=== PATIENT | female | born 1950 | race Caucasian/White ===

== ENCOUNTER → 2017-02-18 | Outpatient (CLI) | payer BC | END | disposition home or self-care (01) | LOC: C.MAMM 07:29 | PROVIDERS: ATTEND Obstetrics & Gynecology | DX: M81.0 Age-related osteoporosis without current pathological fracture (principal) ==

== ENCOUNTER → 2017-02-19 | Outpatient (CLI) | payer BC ==
--- NOTE | 2017-02-19 15:17 | MAMMOGRAPHY REPORT ---
BILATERAL DIGITAL SCREENING MAMMOGRAM TOMOSYNTHESIS WITH CAD: 02/19/2017 CLINICAL HISTORY: Asymptomatic. Personal history of breast cancer. TECHNIQUE: Breast tomosynthesis in addition to standard 2D mammography was performed. Current study was also evaluated with a Computer Aided Detection (CAD) system. COMPARISON: Comparison is made to exams dated: 02/19/2016 mammogram, 02/14/2015 mammogram, 02/08/2014 ma mmogram, 01/25/2013 mammogram, 01/23/2012 mammogram, and 01/21/2011 mammogram - [facility]ter. BREAST COMPOSITION: The tissue of both breasts is heterogeneously dense, which may obscure small mas ses. FINDINGS: There is expected architectural distortion and surgical clips in the upper outer posterior left breast, denoting the site of prior lumpectomy. No new suspicious mass, architectural distortion or cluster of microcalcifications is seen bilaterally. IMPRESSION: ACR BI-RADS CATEGORY 1: NEGATIVE There is no mammographic evidence of malignancy. A 1 year screening mammogram is recommended. The pa tient will receive written notification of the results. Approximately 10% of breast cancers are not detected with mammography. A negative mammographic report should not delay biopsy if a clinically suggestive mass is present. Janna Galvin M.D. ay/:02/19/2017 12:19:56 Plant Machinist: Marc CHOUDHURY(Andrzej)(M), [facility] letter sent: Normal 1/2 BI-RADS Code: ACR BI-RADS Category 1: Negative
== END | disposition home or self-care (01) ==
LOC: C.MAMM 07:45
PROVIDERS: ATTEND Obstetrics & Gynecology
DX: Z12.31 Encounter for screening mammogram for malignant neoplasm of breast (principal)

== ENCOUNTER → 2017-05-07 | Outpatient (CLI) | payer BC ==
--- NOTE | 2017-05-07 14:47 | DIAGNOSTIC IMAGING REPORT ---
BONE SCAN WHOLE BODY CLINICAL HISTORY: Hip pain. Trochanteric bursitis.. Evaluate for metastatic disease. History of breast carcinoma. COMPARISON STUDY: No previous studies for comparison. FINDINGS: The patient was injected with 26 mCi of technetium 99m MDP. Three-hour delayed whole body images were acquired. There is a nonspecific focus of increased activity at the level of the fourth anterior rib. There is an equivocal focus of increased activity within the right lateral sixth rib. Skeletal uptake is otherwise unremarkable. There are no foci of increased activity within the symptomatic hips. IMPRESSION: 1. Nonspecific focus of increased activity at the level of the left anterior fourth rib. A second focus of very subtle increased activity is visualized the level of the right breast/right lateral sixth rib. 2. No evidence of pathologic activity within the symptomatic hips. 3. The rib lesion is estimated to have a less than 10% risk of representing a metastatic deposit. Electronically signed by: Santy Bourgeois M.D. 05/07/2017 2:46 PM Dictated Date/Time: 05/07/2017 2:41 PM
== END | disposition home or self-care (01) ==
LOC: C.NUCL 11:00
PROVIDERS: ATTEND Orthopaedic Surgery Orthopaedic Surgery of the Spine
DX: M70.61 Trochanteric bursitis, right hip (principal); M70.62 Trochanteric bursitis, left hip; M85.88 Other specified disorders of bone density and structure, other site

== ENCOUNTER → 2017-05-14 | Outpatient (CLI) | payer BC ==
[2017-05-14 17:24] LABS: BASO % 0.2 %; BASO ABS # 0.01 K/uL (0-0.2); COMPLETE YES; EOS % 1.5 %; HEMATOCRIT 39.3 % (37-47); LYMPH % 19.5 %; LYMPH ABS # 1.03 K/uL (1.2-3.4); MEAN CELL VOLUME 87.7 fL (80-100); MEAN CORPUSCULAR HEMOGLOBIN 28.8 pg (25-34); MEAN CORPUSCULAR HGB CONC 32.8 g/dl (32-36); MEAN PLATELET VOLUME 10.6 fL (7.4-10.4); MONO % 8.7 %; NEUT % 70.1 %; PLATELET COUNT 180 K/uL (130-400); RED BLOOD COUNT 4.48 M/uL (4.2-5.4); WHITE BLOOD COUNT 5.27 K/uL (4.8-10.8)
[2017-05-17 10:59] LABS: 18KDIGG BAND NONREACTIVE (NONREACTIVE); 23KDIGG BAND NONREACTIVE (NONREACTIVE); 23KDIGM BAND NONREACTIVE (NONREACTIVE); 28KDIGG BAND NONREACTIVE (NONREACTIVE); 30KDIGG BAND NONREACTIVE (NONREACTIVE); 39KDIGG BAND NONREACTIVE (NONREACTIVE); 39KDIGM BAND NONREACTIVE (NONREACTIVE); 41KDIGG BAND REACTIVE (NONREACTIVE); 41KDIGM BAND NONREACTIVE (NONREACTIVE); 45KDIGG BAND NONREACTIVE (NONREACTIVE); 58KDIGG BAND REACTIVE (NONREACTIVE); 66KDIGG BAND NONREACTIVE (NONREACTIVE); 93KDIGG BAND NONREACTIVE (NONREACTIVE)
== END | disposition home or self-care (01) ==
LOC: C.LABBC 12:59
PROVIDERS: ATTEND Orthopaedic Surgery Orthopaedic Surgery of the Spine
DX: M25.559 Pain in unspecified hip (principal)

== ENCOUNTER 2021-08-31 14:19 | Observation (INO) ==
--- NOTE | 2021-08-31 14:44 | XRay Report ---
XR chest 1V portable CLINICAL HISTORY: Chest Pain. COMPARISON STUDY: No previous studies for comparison. TECHNIQUE: 1 view of the chest FINDINGS: Single frontal view of the chest demonstrates the cardiomediastinal silhouette to be within normal li mits. There is hyperinflation of the lungs with attenuation of the pulmonary vasculature peripherally characteristic of underlying chronic obstructive pulmonary disease. The lungs are clear of alveolar opacities. There is no evidence for pleural effusion. There is no evidence for vascular congestion. T here is no acute osseous pathology. IMPRESSION: 1. No acute cardiopulmonary disease. Evidence for underlying COPD. ACT 112: Negative or not required by law. Electronically signed by: Nick Batista M.D. 08/31/2021 2:43 PM
[2021-08-31] MEDS ORDERED: ONDANSETRON INJ 2 MG/ML 2 ML VIAL IV STA ×2 (15:00→17:26)
[2021-08-31] MEDS ORDERED: MoRPHine SULFATE 4 MG/ML 1 ML CARP\\VIAL IV STA (15:00)
--- NOTE | 2021-08-31 15:04 | Electrocardiogram Report ---
Test Reason : Blood Pressure : / mmHG Vent. Rate : 086 BPM Atrial Rate : 086 BPM P-R Int : 164 ms QRS Dur : 074 ms QT Int : 366 ms P-R-T Axes : 082 072 070 degrees QTc Int : 437 ms Sinus rhythm with frequent Premature atrial complexes Left atrial enlargement Borderline ECG No previous ECGs available Confirmed by Marcus Terry ([id number]) on 08/31/2021 3:03:51 PM Referred By: Confirmed By:Marcus Terry
[2021-08-31 15:07] LABS: Basophils # (auto) 0.01 K/uL (0-0.2); Basophils % (auto) 0.3 %; Eosinophils # (auto) 0.04 K/uL (0-0.5); Eosinophils % (auto) 1.1 %; Hematocrit (blood only) 39.8 % (37-47); Hemoglobin 13.6 g/dL (12.0-16.0); Lymphocytes # (auto) 1.13 K/uL (1.2-3.4); Lymphocytes % (auto) 29.8 %; Mean Corpuscular Hemoglobin 29.8 pg (25-34); Mean Corpuscular Hgb Conc 34.2 g/dL (32-36); Mean Corpuscular Volume 87.1 fL (80-100); Mean Platelet Volume 10.3 fL (7.4-10.4); Monocytes # (auto) 0.43 K/uL (0.11-0.59); Monocytes % (auto) 11.3 %; Neutrophils # (auto) 2.18 K/uL (1.4-6.5); Neutrophils % (auto) 57.5 %; Platelet Count 140 K/uL (130-400); RDW Coefficient of Variation 13.4 % (11.5-14.5); RDW Standard Deviation 42.8 fL (36.4-46.3); Red Blood Count 4.57 M/uL (4.2-5.4); White Blood Count 3.79 K/uL (4.8-10.8)
[2021-08-31] MEDS ORDERED: KETOROLAC TROMETHAMINE 15 MG/ML VIAL IV ONE (15:18)
[2021-08-31 15:19] LABS: D Dimer 450 ug/L FEU (0-500)
[2021-08-31 15:30] LABS: Troponin I < 0.03 ng/ml (0-0.04)
[2021-08-31 15:32] LABS: Alanine Aminotransferase 12 U/L (7-52); Albumin Globulin Ratio 1.6 (0.9-2); Albumin Level 4.2 gm/dl (3.4-5.0); Alkaline Phosphatase 50 U/L (34-104); Anion Gap 7 (3-11); Aspartate Aminotransferase 16 U/L (13-39); BUN Creatinine Ratio 30.1 (10-20); Bilirubin,Total 0.4 mg/dl (0.2-1.0); Blood Urea Nitrogen 22 mg/dl (6-23); Calcium 9.4 mg/dl (8.5-10.1); Carbon Dioxide 28 mmol/L (21-32); Chloride 103 mmol/L (98-107); Creatinine Clr Calc Pharmacy 63.6 ml/min; Est GFR (Non-African American) 82.9 ml/min; Globulin 2.6 gm/dl (2.5-4.0); Glucose 79 mg/dl (70-99(Fasting)); Lipase 24 U/L (11-82); Potassium 4.2 mmol/L (3.5-5.1); Sodium 138 mmol/L (136-145); Total Protein 6.8 gm/dl (6.0-8.3)
--- NOTE | 2021-08-31 16:48 | Emergency Department Note ---
Impression & Plan Left-sided chest pain ED Provider Note INFORMANT: Patient ED PROVIDER(S): William Melvin MD CHIEF COMPLAINT: Chest pain PLAN: Disposition: Admitted Condition: Good Outpatient prescription management: none Referral: None MEDICAL DECISION MAKING: Patient presented with pleuritic-like left-sided chest pain. She taken aspirin at home. Her ECG and chest x-ray did not reveal any acute findings. Patient was offered morphine and Zofran but then declined. She was given a dose of Toradol as she requested Motrin she later alluded to the fact that she has an allergy to aspirin but does take Motrin at home without difficulties. She felt like she had some congestion but no swelling or difficulty breathing. The patient had an unremarkable troponin and D-dimer. CBC and chemistry panel was unremarkable as well. On reassessment the patient was still uncomfortable. Exact etiology of her pain is not obvious. She then did agree to a dose of morphine and morphine and Zofran were ordered. Nitropaste was also applied as the patient was mildly hypertensive. Given the patient's age and location of pain further management in the hospital was felt to be appropriate. [facility] Patient was evaluated for further management. Triage Nursing notes reviewed and agree them. Vital Signs: reviewed and remarkable for no significant abnormalities Differential diagnosis: Cardiac ischemia, aortic dissection, pulmonary embolism, pneumothorax, pneumonia, pericarditis, myocarditis, esophageal rupture, GERD, cholecystitis, pancreatitis, musculoskeletal, as well as other pathologies. Diagnostics interpreted by me: ECG: Twelve-lead ECG reveals sinus rhythm with PACs and left atrial enlargement at [address] elevation or depression. No prior for comparison. Cardiac Monitoring:Cardiac monitoring ordered by me: The patient was placed on continuous cardiac monitoring and observed. It revealed a normal sinus rhythm at 65 beats per minute without ectopy or evidence of dysrhythmia. Imaging studies: Chest x-ray. Findings: A chest x-ray was performed and revealed no pneumothorax, effusion, infiltrate, pulmonary edema, free air under the diaphragm, or wide mediastinum. HPI: The patient is a 71 year old female who presents to the Emergency Room with complaints of left-sided. This started less than an hour ago and is sharp. Occurred while she was scrubbing her bathroom. Patient noted some hot flashes. The patient also notes the following associated symptoms, difficulty taking a deep breath. Pain is increased with taking a deep breath The patient has tried aspirin relieving factors. Current pain is rated as 8/10. No prior history of the same. Pt denies LOC, headache, fevers, chills, diaphoresis, visual changes, neck pain, travel, history of blood clots,nausea, vomiting, abdominal pain, back pain, melena, hematochezia, urinary symptoms, numbness, weakness, lymphadenopathy, rash, or other complaints. ROS: See above HPI for pertinent positives & negatives. A total of 10 systems reviewed and were otherwise negative. PAST MEDICAL HISTORY:See Below , arthritis PAST SURGICAL HISTORY:See Below, FAMILY HISTORY:See Below SOCIAL HISTORY:See Below, non-smoker HOME MEDICATIONS:See Below ALLERGIES:See Below VITALS:See Below PHYSICAL EXAMINATION: GENERAL: Awake, alert, well-appearing, in no distress HENT: Normocephalic, atraumatic. Oropharynx unremarkable. EYES: Normal conjunctiva. Sclera non-icteric. NECK: Inspection normal. Non-tender. Supple. No nuchal rigidity. FROM. No masses. RESPIRATORY: Clear to auscultation. No wheezes. No rales. Normal respiratory effort. CARDIAC: Normal rate. Normal rhythm. No murmurs. No rubs. Extremities warm and well perfused. Pulses equal. No JVD. GI: Soft, non-distended. No tenderness to palpation. No rebound or guarding. No masses. RECTAL: Deferred. MUSCULOSKELETAL: Atraumatic. Chest examination reveals minimal left side tenderness. The back is symmetrical on inspection without obvious abnormality. There is no CVA tenderness to palpation. No joint edema. LOWER EXTREMITIES: Calves are equal size bilaterally and non-tender. No edema. No discoloration. NEURO: Normal sensorium. No sensory or motor deficits noted. SKIN: No rash or jaundice noted. William Melvin MD Past Med/Surg History Medical History (Updated 08/31/21 @ 18:55 by Leeann Johnson PA-C) GERD (gastroesophageal reflux disease) History of left breast cancer s/p lumpectomy HLA B27 (HLA B27 positive) Osteoarthritis of knees, bilateral Polymyalgia rheumatica Surgical History (Updated 08/31/21 @ 18:50 by Leeann Johnson PA-C) History of cataract surgery History of lumpectomy of left breast Family History (Updated 08/31/21 @ 18:52 by Leeann Johnson PA-C) Brother Cancer Hodgkins Sudden age 50 Social History (Updated 08/31/21 @ 18:52 by Leeann Johnson PA-C) Smoking Status: Never smoker Hx Alcohol Use: Yes (1 drink once a week) Hx Substance Use: No Preferred Language: Jordanian Feels Safe at Home: Yes Allergies Allergies Allergy/AdvReac Type Severity Reaction Status Date / Time aspirin Allergy Anaphylaxis Unverified 08/31/21 17:39 Sulfa (Sulfonamide AdvReac Verified 08/31/21 17:40 Antibiotics) Home Meds Home Medications Medication Instructions Recorded Confirmed calcium carbonate 600 mg calcium 600 mg PO DAILY 07/05/21 08/31/21 (1,500 mg) tablet (Calcium) denosumab 60 mg/mL subcutaneous 60 mg SUBCUT .2x/year ml 07/05/21 08/31/21 syringe (Prolia) famotidine 20 mg tablet 20 mg PO BID 07/05/21 08/31/21 leflunomide 10 mg tablet 10 mg PO DAILY 08/31/21 08/31/21 multivitamin 1 tab PO DAILY 08/31/21 08/31/21 Results & Data (ED) Vital Signs Vital Signs - 24 hr 08/31/21 14:22 08/31/21 14:50 08/31/21 16:19 Temperature 36.4 C L Temperature Source Temporal Artery Scan Pulse Rate 59 L Pulse Rate [Apical] 65 Respiratory Rate 18 18 Blood Pressure 157/74 H Blood Pressure [Left Arm] 143/64 H Blood Pressure Mean 101 Blood Pressure Mean [Left Arm] 90 Pulse Oximetry 99 99 98 Oxygen Delivery Method Room Air Room Air Sepsis Recent Fever Within 48 Hours No Sepsis New/Unexplained Change in Mental Status No Sepsis Action Taken by Nursing No Action Required 08/31/21 18:00 Temperature Temperature Source Pulse Rate Pulse Rate [Apical] 60 Respiratory Rate 18 Blood Pressure Blood Pressure [Left Arm] 140/54 L Blood Pressure Mean Blood Pressure Mean [Left Arm] 82 Pulse Oximetry 98 Oxygen Delivery Method Room Air Sepsis Recent Fever Within 48 Hours Sepsis New/Unexplained Change in Mental Status Sepsis Action Taken by Nursing Laboratory Data Result diagrams: 08/31/21 15:00 08/31/21 15:00 Lab Results 08/31/21 08/31/21 08/31/21 Range/Units 15:00 15:00 15:00 WBC 3.79 L (4.8-10.8) K/uL RBC 4.57 (4.2-5.4) M/uL Hgb 13.6 (12.0-16.0) g/dL Hct 39.8 (37-47) % MCV 87.1 (80-100) fL MCH 29.8 (25-34) pg MCHC 34.2 (32-36) g/dL RDW Std Deviation 42.8 (36.4-46.3) fL RDW Coeff of Christ 13.4 (11.5-14.5) % Plt Count 140 (130-400) K/uL MPV 10.3 (7.4-10.4) fL Immature Gran % (Auto) 0.0 % Neut % (Auto) 57.5 % Lymph % (Auto) 29.8 % Desha % (Auto) 11.3 % Eos % (Auto) 1.1 % Baso % (Auto) 0.3 % Neut # (Auto) 2.18 (1.4-6.5) K/uL Lymph # (Auto) 1.13 L (1.2-3.4) K/uL Desha # (Auto) 0.43 (0.11-0.59) K/uL Eos # (Auto) 0.04 (0-0.5) K/uL Baso # (Auto) 0.01 (0-0.2) K/uL Immature Gran # (Auto) 0.00 (0.00-0.02) K/uL D-Dimer 450 (0-500) ug/L FEU Sodium 138 (136-145) mmol/L Potassium 4.2 (3.5-5.1) mmol/L Chloride 103 (98-107) mmol/L Carbon Dioxide 28 (21-32) mmol/L Anion Gap 7 (3-11) BUN 22 (6-23) mg/dl Creatinine 0.73 (0.6-1.2) mg/dl Est Cr Clr Drug Dosing 63.6 ml/min Est GFR ( Amer) 96.0 ml/min Est GFR (Non-Af Amer) 82.9 ml/min BUN/Creatinine Ratio 30.1 H (10-20) Glucose 79 (70-99(Fasting)) mg/dl Calcium 9.4 (8.5-10.1) mg/dl Total Bilirubin 0.4 (0.2-1.0) mg/dl AST 16 (13-39) U/L ALT 12 (7-52) U/L Alkaline Phosphatase 50 (34-104) U/L Troponin I < 0.03 (0-0.04) ng/ml Total Protein 6.8 (6.0-8.3) gm/dl Albumin 4.2 (3.4-5.0) gm/dl Globulin 2.6 (2.5-4.0) gm/dl Albumin/Globulin Ratio 1.6 (0.9-2) Lipase 24 (11-82) U/L SARS-CoV-2, RNA, NAAT (NEGATIVE) 08/31/21 Range/Units 17:40 WBC (4.8-10.8) K/uL RBC (4.2-5.4) M/uL Hgb (12.0-16.0) g/dL Hct (37-47) % MCV (80-100) fL MCH (25-34) pg MCHC (32-36) g/dL RDW Std Deviation (36.4-46.3) fL RDW Coeff of Christ (11.5-14.5) % Plt Count (130-400) K/uL MPV (7.4-10.4) fL Immature Gran % (Auto) % Neut % (Auto) % Lymph % (Auto) % Desha % (Auto) % Eos % (Auto) % Baso % (Auto) % Neut # (Auto) (1.4-6.5) K/uL Lymph # (Auto) (1.2-3.4) K/uL Desha # (Auto) (0.11-0.59) K/uL Eos # (Auto) (0-0.5) K/uL Baso # (Auto) (0-0.2) K/uL Immature Gran # (Auto) (0.00-0.02) K/uL D-Dimer (0-500) ug/L FEU Sodium (136-145) mmol/L Potassium (3.5-5.1) mmol/L Chloride (98-107) mmol/L Carbon Dioxide (21-32) mmol/L Anion Gap (3-11) BUN (6-23) mg/dl Creatinine (0.6-1.2) mg/dl Est Cr Clr Drug Dosing ml/min Est GFR ( Amer) ml/min Est GFR (Non-Af Amer) ml/min BUN/Creatinine Ratio (10-20) Glucose (70-99(Fasting)) mg/dl Calcium (8.5-10.1) mg/dl Total Bilirubin (0.2-1.0) mg/dl AST (13-39) U/L ALT (7-52) U/L Alkaline Phosphatase (34-104) U/L Troponin I (0-0.04) ng/ml Total Protein (6.0-8.3) gm/dl Albumin (3.4-5.0) gm/dl Globulin (2.5-4.0) gm/dl Albumin/Globulin Ratio (0.9-2) Lipase (11-82) U/L SARS-CoV-2, RNA, NAAT NEGATIVE (NEGATIVE) Administered Medications Discontinued Medications Ketorolac Tromethamine (Ketorolac Tromethamine 15 Mg/Ml Vial) 10 mg IV NOW ONE Stop: 08/31/21 15:19 Last Admin: 08/31/21 15:26 Dose: 10 mg Documented by: [id number] Morphine Sulfate (Morphine Sulfate 4 Mg/Ml 1 Ml Carp\Vial) 4 mg IV NOW STA Stop: 08/31/21 15:01 Last Admin: 08/31/21 15:23 Dose: Not Given Documented by: [id number] Morphine Sulfate (Morphine Sulfate 2 Mg/Ml Carp) 2 mg IV NOW STA Stop: 08/31/21 17:27 Last Admin: 08/31/21 17:45 Dose: 2 mg Documented by: [id number] Nitroglycerin (Nitroglycerin 2% Ointment 30gm Tube) 0.5 inch EXT NOW STA Stop: 08/31/21 17:27 Last Admin: 08/31/21 17:45 Dose: 0.5 inch Documented by: [id number] Ondansetron HCl (Ondansetron Inj 2 Mg/Ml 2 Ml Vial) 4 mg IV NOW STA Stop: 08/31/21 15:01 Last Admin: 08/31/21 15:23 Dose: Not Given Documented by: [id number] Ondansetron HCl (Ondansetron Inj 2 Mg/Ml 2 Ml Vial) 4 mg IV NOW STA Stop: 08/31/21 17:27 Last Admin: 08/31/21 17:45 Dose: 4 mg Documented by: [id number] Imaging Data Radiologist's Impression: Chest X-Ray 08/31/21 14:30 XR chest 1V portable CLINICAL HISTORY: Chest Pain. COMPARISON STUDY: No previous studies for comparison. TECHNIQUE: 1 view of the chest FINDINGS: Single frontal view of the chest demonstrates the cardiomediastinal silhouette to be within normal limits. There is hyperinflation of the lungs with attenuatio n of the pulmonary vasculature peripherally characteristic of underlying chronic obstructive pulmonary disease. The lungs are clear of alveolar opacities. There is no evidence for pleural effusion. There is no evidence for vascular congestion. There is no acute osseous pathology. IMPRESSION: 1. No acute cardiopulmonary disease. Evidence for underlying COPD. ACT 112: Negative or not required by law. Electronically signed by: Nick Batista M.D. 08/31/2021 2:43 PM Discharge Plan Visit Data Chief Complaint: Chest Pain Stated Complaint: CHEST PAIN, UNABLE TO BREATHE DEEPLY ED Provider: William Melvin Discharge Problem: Left-sided chest pain Forms Stand Alone Forms: My [facility] Prescriptions Prescriptions: No Action calcium carbonate [Calcium 600] 600 mg calcium (1,500 mg) tablet 600 mg PO DAILY RF: 0 famotidine 20 mg tablet 20 mg PO BID RF: 0 Prolia 60 mg/mL syringe 60 mg subcut .2x/year RF: 0 multivitamin Tablet 1 tab PO DAILY RF: 0 leflunomide 10 mg Tablet 10 mg PO DAILY RF: 0 Referrals Referrals: William Kebede MD [Primary Care Provider] -
[2021-08-31] MEDS ORDERED: MoRPHine SULFATE 2 MG/ML CARP IV STA (17:26)
[2021-08-31] MEDS ORDERED: NITROGLYCERIN 2% OINTMENT 30GM TUBE EXT STA (17:26)
--- NOTE | 2021-08-31 17:56 | History & Physical Report ---
Date of Service August 31, 2021 Assessment & Plan (1) Chest pain: Plan: Patient is 71 y/o F with PMH PMR, HLA-B27 arthritis, GERD, H/O left breast CA status post lumpectomy in 2000 presented to ER with complaint of chest pain that started approximately 1 hour prior to arrival. Patient reports was cleaning her sink when started with pain to her left chest described as sharp, aggravated with movement of her left arm and with inspiration and expiration. Denies any di zziness, lightheadedness, palpitations, neck pain, jaw pain, nausea, vomiting, diaphoresis. In ER patient afebrile, vitals stable. EKG sinus rhythm, PAC. initial troponin negative. D-dimer: WNL. CXR: No acute cardiopulmonary disease Patient is really denied any medications for pain. Patient then agreed to medication was given Toradol 10 mg without much relief. She was then given morphine 2 mg and Nitropaste was applied without significant improvement CHEST PAIN R/O ACS. Risk factors: FH. Suspect musculoskeletal etiology with reproducible pain on exam Repeat EKG in am Will trend troponin Echo lipid panel in am reports unable to tolerate aspirin - causes itchy throat Apply lidocaine patch, heat Nitro prn CP and repeat EKG for CP (2) HLA B27 (HLA B27 positive): (3) Polymyalgia rheumatica: Plan: Follows with rheumatology -Dr Mi Continue leflunomide (4) GERD (gastroesophageal reflux disease): Plan: Continue Pepcid (5) History of left breast cancer: Plan: S/P Left breast lumpectomy in 2000 DVT Prophylaxis Heparin SQ Full Code as per discussion with pt Follows with Dr Kebede for routine care Pt was seen and care coordinated with Dr Hanson. See addendum History of Present Illness Chief Complaint: CP Primary Care Provider: William Kebede MD Patient is 71 y/o F with PMH PMR, HLA-B27 arthritis, GERD, H/O left breast CA status post lumpectomy in 2000 presented to ER with complaint of chest pain that started approximately 1 hour prior to arrival. Patient reports was cleaning her sink when started with pain to her left chest described as sharp, aggravated with movement of her left arm and with inspiration and expiration. Patient reports with movement or with breathing pain is an 8 out of 10, at rest is approximately 4 out of 10 on pain scale. Denies any dizziness, lightheadedness, palpitations, neck pain, jaw pain, nausea, vomiting, diaphoresis. Patient reports chronic upper extremity pain secondary to arthritis and feels this is at baseline. Denies any injury or trauma. Patient reports this morning helped her to put in a light and had her arms extended overhead for approximately 1 minute. Patient states the light was not heavy did not feel like she injured herself at the time. Denies fever/chills, N/V/D/C, DEL REAL, syncope, vision changes, neck pain, SOB, orthopnea, cough, sore throat, choking, otalgia, rhinorrhea, abdominal pain, paresthesias, extremity weakness, extremity edema, rashes, urinary symptoms. Allergies Allergy/AdvReac Type Severity Reaction Status Date / Time aspirin Allergy Anaphylaxis Unverified 08/31/21 17:39 Sulfa (Sulfonamide AdvReac Verified 08/31/21 17:40 Antibiotics) Home Medications Medication Instructions Recorded Confirmed Type calcium carbonate 600 mg calcium 600 mg PO DAILY 07/05/21 08/31/21 History (1,500 mg) tablet (Calcium) denosumab 60 mg/mL subcutaneous 60 mg SUBCUT .2x/year ml 07/05/21 08/31/21 History syringe (Prolia) famotidine 20 mg tablet 20 mg PO BID 07/05/21 08/31/21 History leflunomide 10 mg tablet 10 mg PO DAILY 08/31/21 08/31/21 History multivitamin 1 tab PO DAILY 08/31/21 08/31/21 History Past Med/Surg History Medical History (Updated 08/31/21 @ 18:55 by Leeann Johnson PA-C) GERD (gastroesophageal reflux disease) History of left breast cancer s/p lumpectomy HLA B27 (HLA B27 positive) Osteoarthritis of knees, bilateral Polymyalgia rheumatica Surgical History (Updated 08/31/21 @ 18:50 by Leeann Johnson PA-C) History of cataract surgery History of lumpectomy of left breast Family History (Updated 08/31/21 @ 18:52 by Leeann Johnson PA-C) Brother Cancer Hodgkins Sudden age 50 Social History (Updated 08/31/21 @ 19:12 by Leeann Johnson PA-C) Smoking Status: Never smoker Hx Alcohol Use: Yes Alcohol Intake Frequency: Monthly or Less Hx Substance Use: No Preferred Language: Montenegrin Feels Safe at Home: Yes Review of Systems Review of Systems: All systems reviewed & are unremarkable except as noted in HPI & below Physical Exam Physical Exam: General: no distress, WDWN Head: normocephalic, atraumatic Eyes: PERRL, EOM's intact, conjunctiva non-injected, anicteric ENT: normal inspection external ears, nose, mucous membranes moist Neck: supple, trachea midline Lungs: clear, no respiratory distress, no wheezing/rhonchi/rales CV: RRR, no murmur, no pretibial edema; chest wall without rashes +tenderness to palpation left mid anterior chest wall Abd: normal BS, soft, non-tender Ext: no cyanosis, no calf tenderness Neuro: A&O x 3, no focal deficits noted, normal affect Skin: warm, dry Results & Data Results & Data ([facility]) Vital Signs (Past 12 Hours) Vital Signs Temp Pulse Pulse Resp BP BP Pulse Ox 08/31/21 16:19 65 18 143/64 H 98 08/31/21 14:50 99 08/31/21 14:22 36.4 C L 59 L 18 157/74 H 99 Laboratory Results Short CBC 08/31/21 Range/Units 15:00 WBC 3.79 L (4.8-10.8) K/uL Hgb 13.6 (12.0-16.0) g/dL Hct 39.8 (37-47) % Plt Count 140 (130-400) K/uL BMP 08/31/21 15:00 Sodium 138 Potassium 4.2 Chloride 103 Carbon Dioxide 28 BUN 22 Creatinine 0.73 Glucose 79 Calcium 9.4 Cardiac Enzymes 08/31/21 Range/Units 15:00 Troponin I < 0.03 (0-0.04) ng/ml Liver Function 08/31/21 Range/Units 15:00 Total Bilirubin 0.4 (0.2-1.0) mg/dl AST 16 (13-39) U/L ALT 12 (7-52) U/L Alkaline Phosphatase 50 (34-104) U/L Albumin 4.2 (3.4-5.0) gm/dl Diagnostic Findings Chest X-Ray 04/01/22 14:30 XR chest 1V portable CLINICAL HISTORY: Chest Pain. COMPARISON STUDY: No previous studies for comparison. TECHNIQUE: 1 view of the chest FINDINGS: Single frontal view of the chest demonstrates the cardiomediastinal silhouette to be within normal limits. There is hyperinflation of the lungs with attenuation of the pulmonary vasculature peripherally characteristic of underlying chronic obstructive pulmonary disease. The lungs are clear of alveolar opacities. There is no evidence for pleural effusion. There is no evidence for vascular congestion. There is no acute osseous pathology. IMPRESSION: 1. No acute cardiopulmonary disease. Evidence for underlying COPD. ACT 112: Negative or not required by law. Electronically signed by: Nick Batista M.D. 08/31/2021 2:43 PM ECG Rate (beats per minute): 86 Rhythm: sinus rhythm Findings: + PAC
[2021-08-31] MEDS ORDERED: ONDANSETRON INJ 2 MG/ML 2 ML VIAL IV PRN (20:09)
[2021-08-31] MEDS ORDERED: POLYETHYLENE (MIRALAX) 17 GM PACK PO PRN (20:09)
[2021-08-31] MEDS ORDERED: ACETAMINOPHEN 325 MG TAB PO PRN (20:09)
[2021-08-31] MEDS ORDERED: NITROGLYCERIN SL 0.4 MG/TAB TAB SL PRN (20:09)
[2021-08-31] MEDS ORDERED: LIDOCAINE 5% 1 PATCH TD SCH (20:30)
[2021-08-31] MEDS: FAMOTIDINE 20 MG TAB PO SCH (21:41)
[2021-08-31] MEDS: HEPARIN SOD 5,000 UNIT/0.5 ML VIAL SQ SCH (22:08)
[2021-09-01 06:48] LABS: Hematocrit (blood only) 39.6 % (37-47); Hemoglobin 13.1 g/dL (12.0-16.0); Mean Corpuscular Hgb Conc 33.1 g/dL (32-36); Mean Corpuscular Volume 87.8 fL (80-100); Mean Platelet Volume 10.1 fL (7.4-10.4); Platelet Count 137 K/uL (130-400); RDW Coefficient of Variation 13.4 % (11.5-14.5); RDW Standard Deviation 43.2 fL (36.4-46.3); Red Blood Count 4.51 M/uL (4.2-5.4); White Blood Count 3.26 K/uL (4.8-10.8)
[2021-09-01 07:10] LABS: Troponin I < 0.03 ng/ml (0-0.04)
[2021-09-01 07:11] LABS: Anion Gap 5 (3-11); BUN Creatinine Ratio 26.9 (10-20); Blood Urea Nitrogen 21 mg/dl (6-23); Calcium 8.9 mg/dl (8.5-10.1); Carbon Dioxide 30 mmol/L (21-32); Chloride 106 mmol/L (98-107); Chol HDL Ratio 2.3 (0-5); Cholesterol 179 mg/dl (0-200); Creatinine Clr Calc Pharmacy 59.5 ml/min; Est GFR (African American) 88.6 ml/min; Est GFR (Non-African American) 76.5 ml/min; Glucose 81 mg/dl (70-99(Fasting)); HDL Cholesterol 78 mg/dl; LDL Cholesterol Calculated 92 mg/dl; Potassium 4.6 mmol/L (3.5-5.1); Sodium 141 mmol/L (136-145); Triglycerides 47 mg/dl (0-150); VLDL Cholesterol 9 mg/dl (0-30)
[2021-09-01] MEDS ORDERED: LEFLUNOMIDE 10 MG TAB PO SCH (09:00)
--- NOTE | 2021-09-01 10:23 | Electrocardiogram Report ---
Test Reason : Blood Pressure : / mmHG Vent. Rate : 070 BPM Atrial Rate : 060 BPM P-R Int : 138 ms QRS Dur : 088 ms QT Int : 428 ms P-R-T Axes : 079 046 058 degrees QTc Int : 462 ms Sinus rhythm with frequent Premature atrial complexes Otherwise normal ECG When compared with ECG of 31-AUG-2021 14:30, No significant change was found Confirmed by Bob Fish ([id number]) on 09/01/2021 10:23:09 AM Referred By: REFERRED SELF Confirmed By:Bob Fish
[2021-09-01] MEDS: HEPARIN SOD 5,000 UNIT/0.5 ML VIAL SQ SCH (10:26)
[2021-09-01] MEDS: FAMOTIDINE 20 MG TAB PO SCH (10:33)
--- NOTE | 2021-09-01 12:51 | Hospitalist Progress Note ---
Date of Service September 01, 2021 Assessment & Plan (1) Chest pain: Plan: Patient is 71 y/o F with PMH PMR, HLA-B27 arthritis, GERD, H/O left breast CA status post lumpectomy in 2000 presented to ER with complaint of chest pain that started approximately 1 hour prior to arrival. Patient reports was cleaning her sink when started with pain to her left chest described as sharp, aggravated with movement of her left arm and with inspiration and expiration. Denies any di zziness, lightheadedness, palpitations, neck pain, jaw pain, nausea, vomiting, diaphoresis. In ER patient afebrile, vitals stable. EKG sinus rhythm, PAC. initial troponin negative. D-dimer: WNL. CXR: No acute cardiopulmonary disease Patient is really denied any medications for pain. Patient then agreed to medication was given Toradol 10 mg without much relief. She was then given morphine 2 mg and Nitropaste was applied without significant improvement CHEST PAIN R/O ACS. Risk factors: FH. Suspect musculoskeletal etiology with reproducible pain on exam Repeat EKG in am-did not show any significant change Will trend troponin-troponin x3 have been negative Echo showed-LV is normal in size with EF 55 to 60%, LV wall motion is normal, RV systolic function is normal, moderate mitral regurgitation and there is mild TR lipid panel in am-unremarkable reports unable to tolerate aspirin - causes itchy throat Apply lidocaine patch, heat Nitro prn CP and repeat EKG for CP Remains almost free of any chest pain and ACS has been ruled out She has been feeling much better and will be discharged home this afternoon (2) HLA B27 (HLA B27 positive): (3) Polymyalgia rheumatica: Plan: Follows with rheumatology -Dr Mi Continue leflunomide (4) GERD (gastroesophageal reflux disease): Plan: Continue Pepcid (5) History of left breast cancer: Plan: S/P Left breast lumpectomy in 2000 DVT Prophylaxis Heparin SQ Full Code as per discussion with pt Follows with Dr Kebede for routine care Discharge home this afternoon Admission and Anticipated Discharge Date Admission Date: August 31, 2021 Subjective 09/01/2021 The patient was seen and examined in medical telemetry unit She was admitted with left lateral chest pain worse with movement of the left lower extremity and sometimes with deep breathing Denies any palpitation, shortness of breath, nausea and or vomiting or sweating Review of Systems Review of Systems: All systems reviewed and are unremarkable except as noted below Respiratory: Minimal pain with deep breathing involving the left lateral chest wall Physical Exam Physical Exam: Lying in bed comfortably Constitutional: + thin; not ill appearing Eyes: PERRL, conjunctivae normal, anicteric sclerae ENMT: external ear and nose normal, oropharynx normal Neck: trachea midline, no thyromegaly Respiratory: no respiratory distress Auscultation: lungs clear to auscultation bilaterally Mild localized tenderness involving the left lateral precordial area Cardiovascular: Rate/Rhythm: regular rate and regular rhythm; not tachycardic Heart Sounds: normal S1 and normal S2; no murmur Extremities: no edema Gastrointestinal (Abdomen): Inspection/Auscultation: normal bowel sounds; abdomen not distended Percussion/Palpation: abdomen soft; abdomen nontender Musculoskeletal: No acute arthritis and no pain with movement of the left shoulder Neurologic: Alert, awake and oriented x3. No focal sensory and motor deficit appreciated Results & Data Results & Data ([facility]) Vital Signs (Past 12 Hours) Vital Signs Temp Pulse Resp BP Pulse Ox 09/01/21 11:26 36.4 C L 73 18 157/67 H 95 09/01/21 08:03 36.7 C 84 18 127/65 98 09/01/21 03:03 36.4 C L 63 18 112/52 L 97 Laboratory Results Short CBC 08/31/21 09/01/21 Range/Units 15:00 06:33 WBC 3.79 L 3.26 L (4.8-10.8) K/uL Hgb 13.6 13.1 (12.0-16.0) g/dL Hct 39.8 39.6 (37-47) % Plt Count 140 137 (130-400) K/uL BMP 08/31/21 09/01/21 15:00 06:33 Sodium 138 141 Potassium 4.2 4.6 Chloride 103 106 Carbon Dioxide 28 30 BUN 22 21 Creatinine 0.73 0.78 Glucose 79 81 Calcium 9.4 8.9 Cardiac Enzymes 08/31/21 08/31/21 09/01/21 Range/Units 15:00 21:01 06:33 Troponin I < 0.03 < 0.03 < 0.03 (0-0.04) ng/ml Liver Function 08/31/21 Range/Units 15:00 Total Bilirubin 0.4 (0.2-1.0) mg/dl AST 16 (13-39) U/L ALT 12 (7-52) U/L Alkaline Phosphatase 50 (34-104) U/L Albumin 4.2 (3.4-5.0) gm/dl Medications Administered Current Inpatient Medications Acetaminophen (Acetaminophen 325 Mg Tab) 650 mg PO Q4H PRN PRN Reason: Pain or Fever Stop: 09/30/21 20:08 Famotidine (Famotidine 20 Mg Tab) 20 mg PO BID [facility] Stop: 09/30/21 20:59 Last Admin: 09/01/21 10:33 Dose: 20 mg Documented by: Heparin Sodium (Porcine) (Heparin Sod 5,000 Unit/0.5 Ml Vial) 5,000 units SQ Q12 [facility] Stop: 09/30/21 20:59 Last Admin: 09/01/21 10:26 Dose: Not Given Documented by: Leflunomide (Leflunomide 10 Mg Tab) 10 mg PO DAILY [facility] Stop: 10/01/21 08:59 Last Admin: 09/01/21 11:37 Dose: 10 mg Documented by: Lidocaine (Lidocaine 5% 1 Patch) 1 patch TD HS [facility] Stop: 09/30/21 20:29 Last Admin: 08/31/21 21:40 Dose: 1 patch Documented by: Miscellaneous (Remove Lidoderm Patch) 1 ea N/A DAILY@0900 [facility] Stop: 10/01/21 08:59 Last Admin: 09/01/21 10:32 Dose: 1 ea Documented by: Nitroglycerin (Nitroglycerin Sl 0.4 Mg/Tab Tab) 0.4 mg SL UD PRN PRN Reason: Chest Pain Stop: 09/30/21 20:08 Ondansetron HCl (Ondansetron Inj 2 Mg/Ml 2 Ml Vial) 4 mg IV Q6H PRN PRN Reason: Nausea Stop: 09/30/21 20:08 Polyethylene Glycol (Polyethylene (Miralax) 17 Gm Pack) 17 gm PO DAILY PRN PRN Reason: Constipation Stop: 09/30/21 20:08
--- NOTE | 2021-09-02 07:53 | Discharge Summary ---
Date of Service September 02, 2021 Admission HPI Per Admitting Provider Patient is 71 y/o F with PMH PMR, HLA-B27 arthritis, GERD, H/O left breast CA status post lumpectomy in 2000 presented to ER with complaint of chest pain that started approximately 1 hour prior to arrival. Patient reports was cleaning her sink when started with pain to her left chest described as sharp, aggravated with movement of her left arm and with inspiration and expiration. Patient reports with movement or with breathing pain is an 8 out of 10, at rest is approximately 4 out of 10 on pain scale. Denies any dizziness, lightheadedness, palpitations, neck pain, jaw pain, nausea, vomiting, diaphoresis. Patient reports chronic upper extremity pain secondary to arthritis and feels this is at baseline. Denies any injury or trauma. Patient reports this morning helped her to put in a light and had her arms extended overhead for approximately 1 minute. Patient states the light was not heavy did not feel like she injured herself at the time. Denies fever/chills, N/V/D/C, DEL REAL, syncope, vision changes, neck pain, SOB, orthopnea, cough, sore throat, choking, otalgia, rhinorrhea, abdominal pain, paresthesias, extremity weakness, extremity edema, rashes, urinary symptoms. Admission Exam Per Admitting Provider Physical Exam: General: no distress, WDWN Head: normocephalic, atraumatic Eyes: PERRL, EOM's intact, conjunctiva non-injected, anicteric ENT: normal inspection external ears, nose, mucous membranes moist Neck: supple, trachea midline Lungs: clear, no respiratory distress, no wheezing/rhonchi/rales CV: RRR, no murmur, no pretibial edema; chest wall without rashes +tenderness to palpation left mid anterior chest wall Abd: normal BS, soft, non-tender Ext: no cyanosis, no calf tenderness Neuro: A&O x 3, no focal deficits noted, normal affect Skin: warm, dry Principal Diagnosis Noncardiac chest pain, polymyalgia rheumatica, HLA-B27 positive, GERD Discharge Exam Lying in bed comfortably Constitutional + thin; not ill appearing Eyes PERRL, conjunctivae normal, anicteric sclerae ENMT external ear and nose normal, oropharynx normal Neck trachea midline, no thyromegaly Respiratory no respiratory distress Auscultation: lungs clear to auscultation bilaterally Cardiovascular Rate/Rhythm: regular rate and regular rhythm; not tachycardic Heart Sounds: normal S1 and normal S2; no murmur Extremities: no edema Gastrointestinal (Abdomen) Inspection/Auscultation: normal bowel sounds; abdomen not distended Percussion/Palpation: abdomen soft; abdomen nontender Discharge Data Allergies Allergy/AdvReac Type Severity Reaction Status Date / Time aspirin Allergy Anaphylaxis Unverified 08/31/21 17:39 Sulfa (Sulfonamide AdvReac Verified 08/31/21 17:40 Antibiotics) Consultations 08/31/21 18:24 ED Decision to Admit Stat 09/01/21 12:28 Burn CD for patient Routine Hospital Course (1) Chest pain: Patient is 71 y/o F with PMH PMR, HLA-B27 arthritis, GERD, H/O left breast CA status post lumpectomy in 2000 presented to ER with complaint of chest pain that started approximately 1 hour prior to arrival. Patient reports was clean ing her sink when started with pain to her left chest described as sharp, aggravated with movement of her left arm and with inspiration and expiration. Denies any dizziness, lightheadedness, palpitations, neck pain, jaw pain, nausea, vomiting, diaphoresis. In ER patient afebrile, vitals stable. EKG sinus rhythm, PAC. initial troponin negative. D-dimer: WNL. CXR: No acute cardiopulmonary disease Patient is really denied any medications for pain. Patient then agreed to medication was given Toradol 10 mg without much relief. She was then given morphine 2 mg and Nitropaste was applied without significant improvement CHEST PAIN R/O ACS. Risk factors: FH. Suspect musculoskeletal etiology with reproducible pain on exam Repeat EKG in am-did not show any significant change Will trend troponin-troponin x3 have been negative Echo showed-LV is normal in size with EF 55 to 60%, LV wall motion is normal, RV systolic function is normal, moderate mitral regurgitation and there is mild TR lipid panel in am-unremarkable reports unable to tolerate aspirin - causes itchy throat Apply lidocaine patch, heat Nitro prn CP and repeat EKG for CP Remains almost free of any chest pain and ACS has been ruled out She has been feeling much better and will be discharged home this afternoon (2) HLA B27 (HLA B27 positive): (3) Polymyalgia rheumatica: Follows with rheumatology -Dr Mi Continue leflunomide (4) GERD (gastroesophageal reflux disease): Continue Pepcid (5) History of left breast cancer: S/P Left breast lumpectomy in 2000 DVT Prophylaxis Heparin SQ Full Code as per discussion with pt Follows with Dr Kebede for routine care Discharge home this afternoon Total Time Total Time Spent Total Time Spent (In Minutes): 35 minutes Discharge Plan Discharge Items Patient Disposition: Home - Self-Care Reason For Visit: CP Discharge Diagnosis: Noncardiac chest pain, polymyalgia rheumatica, HLA-B27 positive, GERD Condition on Discharge: Fair Activity: Resume your previous activity Non-emergency contact: Primary Care Provider Call non-emergency contact if: you have any medication questions and your symptoms worsen Follow-up/Referrals: William Kebede MD [Primary Care Provider] - (Your doctor's office will give you a call with an appointment within 7 days) Diet: Regular Addtl Attending Provider Instructions: Please take precautions to avoid fall No change in new medication Please keep appointments with your healthcare provider Pending Studies at Discharge: No Stand-Alone Forms: My [employer], Smoking Cessation Medications and DC Order Prescriptions: New lidocaine 5 % Adhesive Patch,Medicated 1 patch transdermal HS 30 Days Qty: 30 RF: 0 Continued calcium carbonate [Calcium 600] 600 mg calcium (1,500 mg) tablet 600 mg PO DAILY RF: 0 famotidine 20 mg tablet 20 mg PO BID RF: 0 Prolia 60 mg/mL syringe 60 mg subcut .2x/year RF: 0 multivitamin Tablet 1 tab PO DAILY RF: 0 leflunomide 10 mg Tablet 10 mg PO DAILY RF: 0 Discharge Orders: Discharge Order (Routine); Ordered 09/01/21 Ordered By: Harrison Mike Admission Data Admit Date/Time: 08/31/21 18:30 Attending Provider: Harrison Mike Admit Provider: Marcin Hanson Primary Care Provider: William Kebede Other Providers: Marcin Hanson Other Interventions: Discharge Summary Assessment (RN) Last Done: 09/01/21 13:10
== END 2021-09-01 14:00 | disposition home or self-care (01) ==
LOC: 2N 14:19 → ED 14:19 → SUATTDRO 18:30 → 2N 19:46
DX: M35.3 Polymyalgia rheumatica; R07.9 Chest pain, unspecified; K21.9 Gastro-esophageal reflux disease without esophagitis; M17.0 Bilateral primary osteoarthritis of knee; Z85.3 Personal history of malignant neoplasm of breast; Z88.6 Allergy status to analgesic agent